=== PATIENT | female | born 2000 | race Caucasian/White ===

== ENCOUNTER 2023-12-19 16:15 | Observation (INO) | payer OTHER, SELFPAY ==
[2023-12-19] VITALS (14 sets, daily range): BP systolic 95–124; BP diastolic 50–81; PULSE 68–95; RESP 14–18; TEMP 36.2–37.1; O2SAT 94–99; BMI 23.1; BMI 23.3
--- NOTE | 2023-12-19 16:35 | CT_ITS ---
We are attempting to reach an attending provider to discuss findings. An addendum with communication details will be sent when the communication is complete. STUDY: CT ABDOMEN AND PELVIS WITH CONTRAST REASON FOR EXAM: Female, 23 years old. abdominal pain RADIATION DOSAGE (If Supplied By Facility): CTDIvol = ( 9.4 ) mGy, DLP = ( 427.57 ) mGycm TECHNIQUE: Transaxial images were obtained from the dome of the diaphragm to the symphysis pubis without oral contrast. IV 100mL Isovue-370 was administered. Sagittal and coronal images were reconstructed. Individualized dose optimization techniques were used for this CT. COMPARISON: None. FINDINGS: The visualized lung bases are unremarkable. The visualized portions of the heart are within normal limits. Normal liver. Normal gallbladder and extrahepatic biliary system. Normal spleen. Normal pancreas. Normal bilateral adrenal glands. Normal right kidney. Normal left kidney. Normal visualized stomach. Normal small intestine. Normal colon. There is thickening of the guillaume of the appendix extending towards the midline with mild stranding in the adjacent fat suspicious for acute appendicitis. There is no periappendiceal abscess Normal abdominal aorta. Normal inferior vena cava. Normal retroperitoneum. Incompletely distended thick walled bladder with stranding in the supra vesicle fat possibly due to cystitis or inflammation related to adjacent appendicitis. Small right ovarian cyst with fluid in the cul-de-sac possibly due to recent ovulation. Normal abdominal wall. Normal osseous structures. CT/Abdomen/Pelvis W IV Cont ONLY IMPRESSION: Findings consistent with acute appendicitis without periappendiceal abscess however there does appear to be associated inflammatory changes involving the adjacent bladder. Electronically Signed: Justin Simpson MD at 17:56 EDT Reading Location ID and State: [facility] / [place] Tel , Service support ,
--- NOTE | 2023-12-19 16:39 | EX.ED.DYSGE1 ---
HPI <AVINASH Avelar - Last Filed: 12/19/23 18:13> History of Present Illness Chief Complaint: Abd Pain Narrative Narrative: Patient is a 23-year-old female with no significant medical history presents to the emergency department with complaints of abdominal pain. Patient was painting a wall, when she had a sudden onset of pain to the mid abdomen. Patient states the pain is now his umbilical area. The pain is much worse and radiates to her back. Patient states she did have some nausea however no vomiting. Denies any diarrhea. Patient denies any fever or chills. PFSH <AVINASH Avelar - Last Filed: 12/19/23 18:13> PFS Medical History no medical history Home Medications ?Medication ?Instructions ?Recorded ?Last Taken ?Type NK 12/19/23 Unknown History Allergy/AdvReac Type Severity Reaction Status Date / Time No Known Allergies Allergy Verified 12/19/23 16:18 Social History Smoking Status: Never smoker ROS <AVINASH Avelar - Last Filed: 12/19/23 18:13> ROS ED ROS Narrative Constitutional: Negative for fever, chills, weight loss, weakness Eyes: Negative for vision loss, vision change, double vision ENT: Negative for any sore throat, ear pain, congestion Cardiovascular: Negative for any chest pain, tightness, palpitations Respiratory: Negative for any cough, sputum production, hemoptysis, dyspnea, dyspnea on exertion, orthopnea Gastrointestinal: Negative for any vomiting, diarrhea, constipation, blood in stool, blood in vomit. Positive for abdominal pain, nausea : Negative for any urinary frequency, dysuria, retention, blood in urine Muscle skeletal: Negative for any neck pain, back pain Neurological: Negative for any headache, syncope, dizziness Skin: Negative for any rashes, itching, abrasions, lacerations Psychiatric: Negative for any depression, anxiety, stress, suicidal ideation, homicidal ideation Hematologic: Negative for any excessive bruising, easy bleeding EXAM <AVINASH Avelar Last Filed: 12/19/23 18:13> Physical Exam Narrative Exam Narrative: Vital signs reviewed. HEET: Head normocephalic atraumatic, TMs clear bilaterally. Posterior pharynx is clear, moist mucous membranes. Nares clear bilaterally. Neck: Supple with no lymphadenopathy or tenderness. No signs of meningismus. Cardiac: Regular rate and rhythm no murmurs gallops or rubs, equal peripheral pulses bilaterally. Respiratory: Lungs clear to auscultation bilaterally. No chest tenderness. Abdomen: Soft, nondistended. No abdominal bruit or pulsatile masses. No hepatosplenomegaly. Tenderness to the periumbilical area patient was markedly tender however it was soft. No peritoneal signs. Extremities: No peripheral edema, no signs of gross trauma or deformity. Active full range of motion of all extremities. Neuro: Cranial nerves II through XII intact, no focal neurological deficits. Skin: Clean dry and intact with no rash, purpura, petechiae, vesicles or pustules. Backs/flank: No CVA tenderness, no midline spinal tenderness, no deformity. Psych: Normal mood and affect. No SI, HI or acute psychosis. Const Vital Signs: 12/19/23 16:16 12/19/23 16:18 12/19/23 17:18 Temperature 97.2 F L 97.2 F L 97.5 F L Temperature Source Temporal Temporal Temporal Pulse Rate 95 92 87 Respiratory Rate 16 16 16 Blood Pressure 124/81 H 124/81 H 112/79 Blood Pressure Mean 95 95 90 Pulse Ox 99 98 98 Oxygen Delivery Method Room Air Room Air Room Air 12/19/23 18:00 Temperature 98.3 F Temperature Source Temporal Pulse Rate 75 Respiratory Rate 16 Blood Pressure 110/74 Blood Pressure Mean 86 Pulse Ox 95 Oxygen Delivery Method Room Air Positive well nourished and well developed General Appearance ED: well developed <Dr. Logan Gonzalez DO - Last Filed: 12/19/23 18:57> Physical Exam Const Vital Signs: 12/19/23 16:16 12/19/23 16:18 12/19/23 17:18 Temperature 97.2 F L 97.2 F L 97.5 F L Temperature Source Temporal Temporal Temporal Pulse Rate 95 92 87 Respiratory Rate 16 16 16 Blood Pressure 124/81 H 124/81 H 112/79 Blood Pressure Mean 95 95 90 Pulse Ox 99 98 98 Oxygen Delivery Method Room Air Room Air Room Air 12/19/23 18:00 Temperature 98.3 F Temperature Source Temporal Pulse Rate 75 Respiratory Rate 16 Blood Pressure 110/74 Blood Pressure Mean 86 Pulse Ox 95 Oxygen Delivery Method Room Air MDM <AVINASH Avelar - Last Filed: 12/19/23 18:13> MDM Lab Data Labs: Laboratory Results - last 24 hr 12/19/23 12/19/23 16:45 16:50 WBC 17.1 H RBC 4.88 Hgb 14.5 Hct 42.4 MCV 86.9 MCH 29.7 MCHC 34.2 RDW Std Deviation 39.1 RDW Coeff of Chemo 12.2 Plt Count 236 MPV 9.8 Immature Gran % (Auto) 0.400 Neut % (Auto) 89.4 H Lymph % (Auto) 5.7 L Sharkey % (Auto) 4.3 Eos % (Auto) 0.0 Baso % (Auto) 0.2 Absolute Neuts (auto) 15.3 H Absolute Lymphs (auto) 0.97 Nucleated RBC % 0 Sodium 138 Potassium 3.7 Chloride 107 Carbon Dioxide 21.0 Anion Gap 10 BUN 15 Creatinine 0.67 Estim Creat Clear Calc 110.84 Est GFR (MDRD) Af Amer 137 Est GFR (MDRD) Non-Af 113 BUN/Creatinine Ratio 22.3 H Glucose 107 H Calcium 9.5 Total Bilirubin 1.10 H AST 14 L ALT 21 Alkaline Phosphatase 60 Total Protein 7.6 Albumin 4.2 Globulin 3.4 Albumin/Globulin Ratio 1.2 Lipase 29 Urine Color Yellow Urine Clarity Sl. Cloudy Urine pH 5.0 Ur Specific [place] 1.020 Urine Protein 15 H Urine Glucose (UA) Normal Urine Ketones 150 A* Urine Occult Blood Negative Urine Nitrite Negative Urine Bilirubin Negative Urine Urobilinogen Normal Ur Leukocyte Esterase Negative Urine RBC 0 SEEN Urine WBC 0 SEEN Ur Squamous Epith Cells 0-5 SEEN Urine Bacteria 2+ Urine Mucus 1+ Urine Test Negative Radiography Diagnostic Testing: Clinical Impression(s) from Imaging Studies Abdomen/Pelvis CT 12/19/23 16:35 IMPRESSION: Findings consistent with acute appendicitis without periappendiceal abscess however there does appear to be associated inflammatory changes involving the adjacent bladder. Electronically Signed: Justin Simpson MD at 17:56 EDT , ADDENDUM: 12/19/23 3224 IMPRESSION: Findings consistent with acute appendicitis without periappendiceal abscess however there does appear to be associated inflammatory changes involving the adjacent bladder. N.B. : The above Results were Read Back by Justin Simpson MD to Bryan Ash and understanding confirmed on 12/19/2023 17:59:58 (ET). Electronically Signed: Justin Simpson MD at 17:56 EDT , ADDENDUM: 12/19/23 1816 IMPRESSION: Findings consistent with acute appendicitis without periappendiceal abscess however there does appear to be associated inflammatory changes involving the adjacent bladder. N.B. : The above Results were Read Back by Justin Simpson MD to Bryan Ash NP, and understanding confirmed on 12/19/2023 18:09:18 (ET). Electronically Signed: Justin Simpson MD at 17:56 EDT , Treatment and Re-Evaluation :: Differential diagnosis includes however is not limited to: Acute appendicitis, bowel obstruction, diverticulitis, muscle strain, pelvic pain such as ruptured ovarian cyst, uterine fibroid Patient appears to be in mild distress after palpating her abdomen. Presenting to the emergency department with lower abdominal pain that started today. This came on all of a sudden. Vital signs are stable. Patient does appear nontoxic. Patient will receive a full abdominal workup including CBC CMP lipase, urinalysis, urine . CT scan of the abdomen pelvis with IV contrast will be completed. Patient given IV fluids Zofran and morphine. Patient be reevaluated. Patient's CBC shows a leukocytosis with a white blood count of 17,000, chemistries were unremarkable. Lipase was negative. Patient's CAT scan was positive for findings consistent with acute appendicitis without periappendiceal abscess however there does appear to be associated laboratory changes involving the adjacent bladder. Secondary to this finding, patient was started IV Zosyn. Did reach out to surgery on-call, they will be here within the hour. Patient was made aware, she was redosed with IV pain medicine. <Dr. Logan Gonzalez, DO - Last Filed: 12/19/23 18:57> [facility] Narrative Medical decision making narrative: I have personally performed a face to face assessment of the patient and have reviewed the HEATH Note. I performed a substantive portion of the visit including all aspects of the following. My foster findings include: History: Patient presents with abdominal pain that began today. Patient states it began rather suddenly. Patient states it started in the epigastric and periumbilical areas. Patient states it is now diffuse across her abdomen. Patient describes it as sharp, cramping, and aching. Patient states it is worse with any movement or deep breathing. Patient states it is better with remaining still. Patient admits to some nausea and vomiting. Patient denies any hematemesis or coffee-ground emesis. Patient denies any diarrhea, melena, or hematochezia. Patient states her pain does radiate into her low back. Patient denies any fevers or chills. Patient denies any urinary complaints. Exam: Vital signs are stable. Patient is afebrile. Patient is in no acute distress. Oral mucosa is pink and moist. Neck is supple. Trachea is midline. There is no JVD. Heart was regular rate and rhythm. Lungs are clear and equal bilaterally. Abdomen is soft. Bowel sounds are normal. There is diffuse tenderness. There is no guarding. There is no rebound noted. Cranial nerves II through XII are intact. There are no focal motor or sensory deficits noted. Medical Decision Making: Differential diagnosis includes gastritis, peptic ulcer disease, duodenal ulcer, pancreatitis, bowel obstruction, perforation, cholecystitis, cholelithiasis, urinary tract infection, and . CT scan of the abdomen pelvis will be obtained to assess for pancreatitis, bowel obstruction, and perforation. CBC will be obtained to assess for leukocytosis and anemia. Comprehensive metabolic profile will be obtained to assess for hepatic function, renal function, and electrolyte abnormality. Lipase will be obtained to assess for pancreatitis. Urine hCG will be obtained to assess for . Urinalysis will be obtained to assess for urinary tract infection. Patient was given IV fluids, morphine, and Zofran. CBC was reviewed. There is a leukocytosis of 17.1. The remainder was within normal limits. Comprehensive metabolic profile was reviewed and was essentially within normal limits. Lipase was reviewed and was normal at 29. Urinalysis was reviewed. There is no evidence of urinary tract infection or hematuria. CT scan of the abdomen and pelvis was obtained. There is evidence of acute appendicitis but no abscess. This was interpreted by the radiologist and was also independently reviewed by myself. Patient was given morphine and Zofran. Patient was given a dose of Zosyn. Case was discussed with Dr. Soliman. He will be in to evaluate the patient and take patient to the operating room for appendectomy. Patient understood and was agreeable with the plan. All questions were answered. Lab Data Labs: Laboratory Results - last 24 hr 12/19/23 12/19/23 16:45 16:50 WBC 17.1 H RBC 4.88 Hgb 14.5 Hct 42.4 MCV 86.9 MCH 29.7 MCHC 34.2 RDW Std Deviation 39.1 RDW Coeff of Chemo 12.2 Plt Count 236 MPV 9.8 Immature Gran % (Auto) 0.400 Neut % (Auto) 89.4 H Lymph % (Auto) 5.7 L Sharkey % (Auto) 4.3 Eos % (Auto) 0.0 Baso % (Auto) 0.2 Absolute Neuts (auto) 15.3 H Absolute Lymphs (auto) 0.97 Nucleated RBC % 0 Sodium 138 Potassium 3.7 Chloride 107 Carbon Dioxide 21.0 Anion Gap 10 BUN 15 Creatinine 0.67 Estim Creat Clear Calc 110.84 Est GFR (MDRD) Af Amer 137 Est GFR (MDRD) Non-Af 113 BUN/Creatinine Ratio 22.3 H Glucose 107 H Calcium 9.5 Total Bilirubin 1.10 H AST 14 L ALT 21 Alkaline Phosphatase 60 Total Protein 7.6 Albumin 4.2 Globulin 3.4 Albumin/Globulin Ratio 1.2 Lipase 29 Urine Color Yellow Urine Clarity Sl. Cloudy Urine pH 5.0 Ur Specific [place] 1.020 Urine Protein 15 H Urine Glucose (UA) Normal Urine Ketones 150 A* Urine Occult Blood Negative Urine Nitrite Negative Urine Bilirubin Negative Urine Urobilinogen Normal Ur Leukocyte Esterase Negative Urine RBC 0 SEEN Urine WBC 0 SEEN Ur Squamous Epith Cells 0-5 SEEN Urine Bacteria 2+ Urine Mucus 1+ Urine Test Negative Radiography Diagnostic Testing: Clinical Impression(s) from Imaging Studies Abdomen/Pelvis CT 12/19/23 16:35 IMPRESSION: Findings consistent with acute appendicitis without periappendiceal abscess however there does appear to be associated inflammatory changes involving the adjacent bladder. Electronically Signed: Justin Simpson MD at 17:56 EDT , ADDENDUM: 12/19/23 1806 IMPRESSION: Findings consistent with acute appendicitis without periappendiceal abscess however there does appear to be associated inflammatory changes involving the adjacent bladder. N.B. : The above Results were Read Back by Justin Simpson MD to Bryan Ash and understanding confirmed on 12/19/2023 17:59:58 (ET). Electronically Signed: Justin Simpson MD at 17:56 EDT , ADDENDUM: 12/19/23 1816 IMPRESSION: Findings consistent with acute appendicitis without periappendiceal abscess however there does appear to be associated inflammatory changes involving the adjacent bladder. N.B. : The above Results were Read Back by Justin Simpson MD to Bryan Ash , RAFI, and understanding confirmed on 12/19/2023 18:09:18 (ET). Electronically Signed: Justin Simpson MD at 17:56 EDT , Discharge Plan Triage Chief Complaint: Abd Pain ED Midlevel Provider: Bryan Ash ED Provider: Logan Gonzalez Dx/Rx/DC Orders Primary Care Provider: CYNTHIA TUCKER
[2023-12-19] MEDS: 0.9% Normal Saline (1000mL) 1,000 ML 999 ML IV (16:54)
[2023-12-19] MEDS: Ondansetron 4 MG/2 ML Vial IV (16:54)
[2023-12-19 16:55] LABS: Absolute Lymphocyte Count 0.97 X10^3/uL (0.83-4.51); Absolute Neutrophil Count 15.3 X10^3/uL (2.0-7.7); Basophil# 0.03 X10^3/uL; Basophil% 0.2 % (0-1); Hematocrit 42.4 % (37-47); Hemoglobin 14.5 g/dL (12.0-15.0); Lymphocyte # 0.97 X10^3/ul (0.83-4.51); Lymphocyte % 5.7 % (19-41); Mean Corp Hgb Conc 34.2 g/dL (32-36); Mean Corpuscular Hgb 29.7 pg (27.0-32.0); Mean Corpuscular Volume 86.9 fL (81-99); Mean Platelet Vol. 9.8 fl (6.2-12.0); Monocyte# 0.73 X10^3/uL; Monocyte% 4.3 % (0-10); NRBC Flagged by Analyzer 0 % (0-5); Neutrophil # 15.29 X10^3/uL (2.7-7.7); Neutrophil % 89.4 % (47-70); Platelet Count 236 K/mm3 (150-450); RBC Distribution Width CV 12.2 % (11.6-14.6); RBC Distribution Width SD 39.1 fl (35.1-43.9); Red Blood Count 4.88 M/mm3 (4.2-5.4); White Blood Count 17.1 K/mm3 (4.4-11.0)
[2023-12-19] MEDS: Morphine 4 MG/ML Syringe IV ×2 (16:55→18:26)
[2023-12-19 17:05] LABS: Red Blood Cells-Urine 0 SEEN /hpf (0-5); White Blood Cells 0 SEEN /hpf (0-5)
[2023-12-19 17:12] LABS: ALB/GLOB Ratio 1.2 RATIO (0.9-2.4); AST(SGOT) 14 U/L (15-37); Alanine Aminotransfer ALT/SGPT 21 U/L (13-56); Albumin, Serum 4.2 g/dL (3.2-5.0); Alkaline Phosphatase 60 U/L (45-117); Anion Gap 10 (5-15); BUN 15 mg/dL (7-18); BUN/Creat Ratio 22.3 RATIO (10-20); Calcium,Total 9.5 mg/dL (8.5-10.1); Chloride 107 mmol/L (98-107); Creatinine, Serum 0.67 mg/dL (0.55-1.02); EST Glomerular Filtration Rate 113 mL/min (>60); Est Glom Filt Rate - Afr Amer 137 mL/min (>60); Estimated Creatinine Clearance 110.84 ml/min; Globulin 3.4 g/dL (2.2-4.2); Glucose 107 mg/dL (74-106); Lipase 29 U/L (13-75); Potassium 3.7 mmol/L (3.5-5.1); Protein, Total 7.6 g/dL (6.4-8.2); Sodium Level 138 mmol/L (136-145)
[2023-12-19 17:13] LABS: Color, Urine Yellow (Yellow); Glucose, Dipstick Normal (Normal); Leukocyte Esterase-Dipstick Negative /ul (Negative); Nitrite-Dipstick Negative (Negative); Occult Blood-Urine Negative /ul (Negative); Protein-Dipstick 15 mg/dl (Negative); Urine Bilirubin Dipstick Negative (Negative); Urine Clarity Sl. Cloudy (Clear); Urine Urobilinogen Normal (Normal)
[2023-12-19 17:22] LABS: Ketone-Dipstick 150 mg/dl (Negative)
[2023-12-19 17:23] LABS: Bacteria 2+ /hpf (None Seen); Internal QC Validated? YES +Cl - CLEAR BKGD; Mucous, Urine 1+ /hpf (<or=2+); Pregnancy, Urine Negative Negative; Squamous Epithelial Cells - UA 0-5 SEEN /hpf (5-10)
[2023-12-19] MEDS: Piperacil/Tazobactam 3.375 GM in 0.9% Normal Saline (50mL MB+) 50 ML IV (18:30)
--- NOTE | 2023-12-19 18:55 | HP.PCM.SX_ITS ---
HPI - General HPI Narrative YORDY KAY, is a 23 F who presents with abdominal pain and nausea, vomiting. Patient says it started this afternoon. She says the pain migrated down to the right lower quadrant. She denies fevers or chills. PFSH Medical History no medical history Home Medications ?Medication ?Instructions ?Recorded ?Last Taken ?Type NK 12/19/23 Unknown History Allergy/AdvReac Type Severity Reaction Status Date / Time No Known Allergies Allergy Verified 12/19/23 16:18 Social History Smoking Status: Never smoker ROS Constitutional Constitutional: Denies anorexia, chills or fatigue Eyes Eyes: Denies blurry vision ENT HEENT: Denies abnormal hearing Cardiovascular Cardiovascular: Denies chest pain Respiratory/Chest Respiratory/Chest: Denies cough or dyspnea Gastrointestinal Gastrointestinal: Reports abdominal pain, nausea and vomiting; Denies constipation Genitourinary Genitourinary: Denies change in urinary stream Musculoskeletal Musculoskeletal: Denies abnormal gait Integumentary Integumentary: Denies jaundice Neurologic Neurologic: Denies dizziness Psychiatric Psychiatric: Denies anxiety Endocrine Endocrinology: Denies heat intolerance Hematologic/Lymphatic Hematologic/Lymphatic: Denies easy bleeding Vital Signs Vital Signs Vital Signs: 12/19/23 16:16 12/19/23 16:18 12/19/23 17:18 Temperature 97.2 F L 97.2 F L 97.5 F L Temperature Source Temporal Temporal Temporal Pulse Rate 95 92 87 Respiratory Rate 16 16 16 Blood Pressure 124/81 H 124/81 H 112/79 Blood Pressure Mean 95 95 90 Pulse Ox 99 98 98 Oxygen Delivery Method Room Air Room Air Room Air 12/19/23 18:00 Temperature 98.3 F Temperature Source Temporal Pulse Rate 75 Respiratory Rate 16 Blood Pressure 110/74 Blood Pressure Mean 86 Pulse Ox 95 Oxygen Delivery Method Room Air Weight Weight: 135 lb Body Mass Index (BMI) 23.1 Physical Exam Const oriented x3 and no apparent distress Resp normal respiratory effort GI soft to palpation Palpation: tender RLQ Extremity normal to inspection Results Lab / Micro Data 12/19/23 16:45 12/19/23 16:45 Labs: Laboratory Results - last 24 hr 12/19/23 16:45: WBC 17.1 H, RBC 4.88, Hgb 14.5, Hct 42.4, MCV 86.9, MCH 29.7, MCHC 34.2, RDW Std Deviation 39.1, RDW Coeff of Chemo 12.2, Plt Count 236, MPV 9.8, Immature Gran % (Auto) 0.400, Neut % (Auto) 89.4 H, Lymph % (Auto) 5.7 L, [place] % (Auto) 4.3, Eos % (Auto) 0.0, Baso % (Auto) 0.2, Absolute Neuts (auto) 15.3 H, Absolute Lymphs (auto) 0.97, Nucleated RBC % 0, Sodium 138, Potassium 3.7, Chloride 107, Carbon Dioxide 21.0, Anion Gap 10, BUN 15, Creatinine 0.67, Estim Creat Clear Calc 110.84, Est GFR (MDRD) Af Amer 137, Est GFR (MDRD) Non-Af 113, BUN/Creatinine Ratio 22.3 H, Glucose 107 H, Calcium 9.5, Total Bilirubin 1.10 H, AST 14 L, ALT 21, Alkaline Phosphatase 60, Total Protein 7.6, Albumin 4.2, Globulin 3.4, Albumin/Globulin Ratio 1.2, Lipase 29 12/19/23 16:50: Urine Color Yellow, Urine Clarity Sl. Cloudy, Urine pH 5.0, Ur Specific [place] 1.020, Urine Protein 15 H, Urine Glucose (UA) Normal, Urine Ketones 150 A*, Urine Occult Blood Negative, Urine Nitrite Negative, Urine Bilirubin Negative, Urine Urobilinogen Normal, Ur Leukocyte Esterase Negative, Urine RBC 0 SEEN, Urine WBC 0 SEEN, Ur Squamous Epith Cells 0-5 SEEN, Urine Bacteria 2+, Urine Mucus 1+, Urine Test Negative Imaging Radiology Impression Abdomen/Pelvis CT 12/19/23 16:35 IMPRESSION: Findings consistent with acute appendicitis without periappendiceal abscess however there does appear to be associated inflammatory changes involving the adjacent bladder. Electronically Signed: Justin Simpson MD at 17:56 EDT , ADDENDUM: 12/19/23 2157 IMPRESSION: Findings consistent with acute appendicitis without periappendiceal abscess however there does appear to be associated inflammatory changes involving the adjacent bladder. N.B. : The above Results were Read Back by Justin Simpson MD to Bryan Ash and understanding confirmed on 12/19/2023 17:59:58 (ET). Electronically Signed: Justin Simpson MD at 17:56 EDT , ADDENDUM: 12/19/23 1816 IMPRESSION: Findings consistent with acute appendicitis without periappendiceal abscess however there does appear to be associated inflammatory changes involving the adjacent bladder. N.B. : The above Results were Read Back by Justin Simpson MD to Bryan Ash NP, and understanding confirmed on 12/19/2023 18:09:18 (ET). Electronically Signed: Justin Simpson MD at 17:56 EDT , Assessment & Plan Assessment/Plan (1) Appendicitis: QUALIFIERS: Appendicitis type: unspecified Qualified Code(s): K37 - Unspecified appendicitis PLAN: Patient presented with pain and elevated white count. CT scan revealed acute appendicitis there was also some thickening of the bladder wall but the patient does not have any urinary symptoms. I discussed laparoscopic appendectomy with the patient in detail. I discussed the risks including but not limited to bleeding, infection, injury other organ such as the bladder, bowel, ureter. Patient understands all the risks and is willing to proceed. She was given antibiotics in the emergency room. Jourdan Soliman MD Pager: [facility] [address] [place] [address], [address] [place] [address] Office:
--- NOTE | 2023-12-19 19:20 | APP_PTH ---
PATIENT: YORDY KAY LOC: [facility]3 U#:[id number] AGE/SX: 23/F ROOM: MT314 RE12/19/[address]: Dr. Jourdan Soliman MD : 2000 BED: 1 DIS: 12/20/2023 SPEC #: [id number] RECD: 12/23/23 09:52 STATUS: EVELINA DELAROSA #: [id number] CORTNEY: 12/19/23 19:[address]: Jourdan Soliman DEPT: SURGICAL PATHOLOGY RECD BY: Tae Schilling Tissues: Appendix, NOS Procedures: Surgery Specimen Level III HEADER OPERATION: Laparoscopic, appendectomy PRE-OP DIAGNOSIS: Appendicitis TISSUE SUBMITTED: Appendix MICROSCOPIC DIAGNOSIS Appendix, appendectomy: Acute necrotizing appendicitis. Acute serositis. AM/mr 12/24/2023 MICROSCOPIC DESCRIPTION Slides are reviewed. GROSS DESCRIPTION Received in fixative is one container labeled with the patient's name and designated appendix. The specimen consists of a vermiform appendix measuring 6.0 cm in length and 0.9 cm in average diameter. No gross perforations are evident. Serial sections reveal a patent lumen. No mass lesion is identified. [employer] sections are submitted in one cassette. / AM: 12/23/2023 TC:2 CPT: [id number]
[2023-12-19] MEDS: Bupiv/Epi 0.25% 30 ML Vial (20:17)
--- NOTE | 2023-12-19 20:23 | OP.PCM_ITS ---
Report of Operation Date of Procedure: 12/19/23 Pre-Operative Diagnosis: Acute appendicitis Post-Operative Diagnosis: Same Surgery/Procedure Performed:: Laparoscopic appendectomy Type of Anesthesia: General/Regional Specimen's removed: Appendix Estimated Blood Loss (mL): 10 Description of Procedure: The patient was brought into the operating room and general anesthesia was induced. The left arm was tucked and the abdomen was prepped and draped in usual sterile fashion. A small midline incision was made superior to the umbilicus and deepened to the level of the fascia. The fascia was elevated and incised. The peritoneum was also elevated and incised. A finger sweep was performed and a balloon trocar was placed into the abdomen and inflated. The abdomen was insufflated to 15 mmHg and the camera was inserted and the abdomen was inspected for any injuries upon entering the abdomen. There were none. The patient was placed in Trendelenburg position and a 5 mm ports placed in the left lower quadrant and suprapubic areas under direct visualization. Next using atraumatic bowel graspers the appendix was identified. The appendix was grasped and elevated and Enseal was used to take down the mesoappendix. A stapler was used to come across the base of the appendix. The appendix was then placed in Endo Catch bag and removed through the umbilical incision. The staple line was inspected and found to be hemostatic and intact. The 2 5 mm ports are removed under direct visualization. The balloon trocar was deflated and removed and all the air was removed from the abdomen. The umbilical incision fascia was closed with an 0 Vicryl [id number] suture. The incisions were then irrigated with saline and dried. Local anesthetic was injected into the incision sites. The skin incisions were then closed with interrupted 4-0 Monocryl suture and Steri- Strips. Bandages were applied and the patient was awoken and taken to PACU in stable condition. Patient tolerated the procedure well. Admit VTE Documentation VTE Mechan Device Prophylaxis: SCD's
[2023-12-19] MEDS: Ketorolac 15 MG/ML Vial IV (21:00)
[2023-12-19] MEDS: Acetaminophen 325 MG Tablet 650 MG PO (22:40)
[2023-12-19] MEDS: 0.9% Normal Saline (1000mL) 1,000 ML 60 ML IV (22:41)
[2023-12-20 02:20] VITALS: BP 92/52; PULSE 62; RESP 16; TEMP 36.8; O2SAT 99
[2023-12-20] MEDS: oxyCODONE 5 MG Tablet PO ×2 (02:22→06:46)
[2023-12-20] MEDS: Ketorolac 15 MG/ML Vial IV (05:08)
[2023-12-20] MEDS: Acetaminophen 325 MG Tablet 650 MG PO ×2 (05:12→15:12)
[2023-12-20 05:17] VITALS: BP 89/56; PULSE 66; RESP 16; TEMP 36.3; O2SAT 99
[2023-12-20 06:42] VITALS: BP 87/55; PULSE 70; RESP 16; TEMP 36.4; O2SAT 99
--- NOTE | 2023-12-20 08:50 | PCM.PN.SRG ---
Subjective Subjective Patient reports her abdomen feels a little bit distended. Denies nausea or vomiting. Objective Data Objective Data Vital Signs: Vital Signs Temp Pulse Resp BP Pulse Ox O2 Del Method 97.5 F L 70 16 87/55 L 99 Room Air 12/20/23 06:42 12/20/23 06:42 12/20/23 06:42 12/20/23 06:42 12/20/23 06:42 12/20/23 06:42 Oxygen Delivery Method Room Air Weight: 136 lb 0.403 oz Body Mass Index (BMI) 23.3 Intake & Output: Intake and Output for Last 24 Hours 12/18/23 12/19/23 12/20/23 23:59 23:59 23:59 Intake Total 1050 / 1550 1000 / 1000 Output Total 600 / 600 Balance 1050 / 1550 400 / 400 Lab / Micro Data 12/19/23 16:45 12/19/23 16:45 Labs: Laboratory Results - last 24 hr 12/19/23 16:45: WBC 17.1 H, RBC 4.88, Hgb 14.5, Hct 42.4, MCV 86.9, MCH 29.7, MCHC 34.2, RDW Std Deviation 39.1, RDW Coeff of Chemo 12.2, Plt Count 236, MPV 9.8, Immature Gran % (Auto) 0.400, Neut % (Auto) 89.4 H, Lymph % (Auto) 5.7 L, [place] % (Auto) 4.3, Eos % (Auto) 0.0, Baso % (Auto) 0.2, Absolute Neuts (auto) 15.3 H, Absolute Lymphs (auto) 0.97, Nucleated RBC % 0, Sodium 138, Potassium 3.7, Chloride 107, Carbon Dioxide 21.0, Anion Gap 10, BUN 15, Creatinine 0.67, Estim Creat Clear Calc 110.84, Est GFR (MDRD) Af Amer 137, Est GFR (MDRD) Non-Af 113, BUN/Creatinine Ratio 22.3 H, Glucose 107 H, Calcium 9.5, Total Bilirubin 1.10 H, AST 14 L, ALT 21, Alkaline Phosphatase 60, Total Protein 7.6, Albumin 4.2, Globulin 3.4, Albumin/Globulin Ratio 1.2, Lipase 29 12/19/23 16:50: Urine Color Yellow, Urine Clarity Sl. Cloudy, Urine pH 5.0, Ur Specific [place] 1.020, Urine Protein 15 H, Urine Glucose (UA) Normal, Urine Ketones 150 A*, Urine Occult Blood Negative, Urine Nitrite Negative, Urine Bilirubin Negative, Urine Urobilinogen Normal, Ur Leukocyte Esterase Negative, Urine RBC 0 SEEN, Urine WBC 0 SEEN, Ur Squamous Epith Cells 0-5 SEEN, Urine Bacteria 2+, Urine Mucus 1+, Urine Test Negative Radiography Diagnostic Testing: Radiology Impression Abdomen/Pelvis CT 12/19/23 16:35 IMPRESSION: Findings consistent with acute appendicitis without periappendiceal abscess however there does appear to be associated inflammatory changes involving the adjacent bladder. Electronically Signed: Justin Simpson MD at 17:56 EDT Reading Location ID and State: [facility] / [place] Tel [phone], Service support , ADDENDUM: 12/19/23 1806 IMPRESSION: Findings consistent with acute appendicitis without periappendiceal abscess however there does appear to be associated inflammatory changes involving the adjacent bladder. N.B. : The above Results were Read Back by Justin Simpson MD to Bryan Ash and understanding confirmed on 12/19/2023 17:59:58 (ET). Electronically Signed: Justin Simpson MD at 17:56 EDT Reading Location ID and State: [facility] / [place] Tel [phone], Service support , ADDENDUM: 12/19/23 1816 IMPRESSION: Findings consistent with acute appendicitis without periappendiceal abscess however there does appear to be associated inflammatory changes involving the adjacent bladder. N.B. : The above Results were Read Back by Justin Simpson MD to Bryan Ash NP, and understanding confirmed on 12/19/2023 18:09:18 (ET). Electronically Signed: Justin Simpson MD at 17:56 EDT , Physical Exam Const oriented x3 and no apparent distress Resp normal respiratory effort GI soft to palpation Inspection: abdominal distention Palpation: tender Assessment & Plan Assessment/Plan (1) Appendicitis: QUALIFIERS: Appendicitis type: unspecified Qualified Code(s): K37 - Unspecified appendicitis PLAN: Patient reports she is feeling better than yesterday. She denies nausea or vomiting. She is still having some pain and some distention. She tolerated regular diet for dinner and for breakfast this morning. As long as she does not get nauseous and she starts having bowel function later today I will discharge her later. If she starts having nausea or increased pain I will keep her until tomorrow. Jourdan Soliman MD Pager: [facility] [address] [place] [address], [address] [place] [address] Office:
--- NOTE | 2023-12-20 08:52 | PCM.DC.SUM ---
Providers Date of Admission: 12/19/23 Primary Care Physician: CYNTHIA TUCKER Reason For Visit: ACUTE APPENDICITIS Diagnosis Discharge Diagnosis (1) Appendicitis: Status: Acute Code(s): K37 - Unspecified appendicitis Qualifiers: Appendicitis type: unspecified Qualified Code(s): K37 - Unspecified appendicitis Plan: Patient reports she is feeling better than yesterday. She denies nausea or vomiting. She is still having some pain and some distention. She tolerated regular diet for dinner and for breakfast this morning. As long as she does not get nauseous and she starts having bowel function later today I will discharge her later. If she starts having nausea or increased pain I will keep her until tomorrow. Jourdan Soliman MD Pager: [facility] [address] [place] [address], [address] [place] [phone] Office: Medications at Discharge Home Medications oxycodone 5 mg tablet 5 - 10 mg (1 - 2 x 5 mg) PO Q4H PRN PRN Pain Score 4-10 5 days #20 tabs 12/20/23 Hospital Course Operations appendectomy Procedures None Summary of Care Provided Hospital Course: Patient presented to the hospital with abdominal pain was found to have acute appendicitis. She was taken for laparoscopic appendectomy. Following day she was started on diet and discharged home once tolerating diet Weight / BMI Weight Weight: 136 lb 0.403 oz Body Mass Index (BMI) 23.3 ABG / Lab / Microbiology Data 12/19/23 16:45 12/19/23 16:45 Laboratory: Laboratory Results - last 24 hr 12/19/23 16:45: WBC 17.1 H, RBC 4.88, Hgb 14.5, Hct 42.4, MCV 86.9, MCH 29.7, MCHC 34.2, RDW Std Deviation 39.1, RDW Coeff of Chemo 12.2, Plt Count 236, MPV 9.8, Immature Gran % (Auto) 0.400, Neut % (Auto) 89.4 H, Lymph % (Auto) 5.7 L, [place] % (Auto) 4.3, Eos % (Auto) 0.0, Baso % (Auto) 0.2, Absolute Neuts (auto) 15.3 H, Absolute Lymphs (auto) 0.97, Nucleated RBC % 0, Sodium 138, Potassium 3.7, Chloride 107, Carbon Dioxide 21.0, Anion Gap 10, BUN 15, Creatinine 0.67, Estim Creat Clear Calc 110.84, Est GFR (MDRD) Af Amer 137, Est GFR (MDRD) Non-Af 113, BUN/Creatinine Ratio 22.3 H, Glucose 107 H, Calcium 9.5, Total Bilirubin 1.10 H, AST 14 L, ALT 21, Alkaline Phosphatase 60, Total Protein 7.6, Albumin 4.2, Globulin 3.4, Albumin/Globulin Ratio 1.2, Lipase 29 12/19/23 16:50: Urine Color Yellow, Urine Clarity Sl. Cloudy, Urine pH 5.0, Ur Specific [place] 1.020, Urine Protein 15 H, Urine Glucose (UA) Normal, Urine Ketones 150 A*, Urine Occult Blood Negative, Urine Nitrite Negative, Urine Bilirubin Negative, Urine Urobilinogen Normal, Ur Leukocyte Esterase Negative, Urine RBC 0 SEEN, Urine WBC 0 SEEN, Ur Squamous Epith Cells 0-5 SEEN, Urine Bacteria 2+, Urine Mucus 1+, Urine Test Negative Radiography Diagnostic Testing: Radiology Impression Abdomen/Pelvis CT 12/19/23 16:35 IMPRESSION: Findings consistent with acute appendicitis without periappendiceal abscess however there does appear to be associated inflammatory changes involving the adjacent bladder. Electronically Signed: Justin Simpson MD at 17:56 EDT Reading Location ID and State: [address] [place] [address] Tel [phone], Service support , ADDENDUM: 12/19/23 1806 IMPRESSION: Findings consistent with acute appendicitis without periappendiceal abscess however there does appear to be associated inflammatory changes involving the adjacent bladder. N.B. : The above Results were Read Back by Justin Simpson MD to Bryan Ash and understanding confirmed on 12/19/2023 17:59:58 (ET). Electronically Signed: Justin Simpson MD at 17:56 EDT , ADDENDUM: 12/19/23 1816 IMPRESSION: Findings consistent with acute appendicitis without periappendiceal abscess however there does appear to be associated inflammatory changes involving the adjacent bladder. N.B. : The above Results were Read Back by Justin Simpson MD to Bryan Ash NP, and understanding confirmed on 12/19/2023 18:09:18 (ET). Electronically Signed: Justin Simpson MD at 17:56 EDT Reading Location ID and State: [address] [place] [address] Tel , Service support , D/C Instructions Discharge Diet: Light diet - advance as tolerated Discharge Activity: May Not Drive (for 2-3 days or while taking narcotic pain medications.) May shower in (days): 1 Lifting Restrictions: 20 lbs for 2 weeks Call your doctor if your incision/area has: Continuous Slow Oozing, Sudden Increased Bleeding, Increased Pain/ Swelling, Increased Redness and Foul Smelling Discharge Call your doctor if you observe: Fever of 101 or Higher Suture Line Care: Avoid Pulling/Pushing and Avoid Pinching/Bending Remove Dressing in: 2 days Cleanse incision/area with: Soap & Water Additional Dressing/Incision Instructions: Keep dressing clean and dry. Change or remove dressing in 2 days. Leave steri strips for 1 week. May protect with a gauze bandaid. Alternate ibuprofen and Tylenol for pain control, oxycodone for breakthrough pain Please Follow Up With: Jourdan Soliman MD When: Please call to schedule 2 week follow up appointment. [phone] Meaningful Use Info Meaningful Use Meaningful Use Diagnoses (Choose all that apply): None applicable Ischemic Stroke Statin Dosing Therapy Reference: STATIN DOSE THERAPY REFERENCE: * Patients > 75 years receive moderate or high dose statin therapy. * Patients 75 years or YOUNGER should receive HIGH intensity statin dose unless contraindicated. You will be required to document reason for non-treatment if statin daily dose does not meet guidelines. HIGH DOSE STATIN THERAPY DAILY Atorvastatin > than or = to 40 mg Rosuvastatin > than or = to 20 mg Amlodipine + Atorvastatin > than or = to 2.5/40 mg Ezetimibe + Simvastatin 10/80 mg Simvastatin 80mg Discharge Plan Admission Admit Date/Time: 12/19/23 20:34 Attending Provider: Jourdan Soliman Primary Care Provider: CYNTHIA TUCKER Discharge Orders/Prescriptions Prescriptions: New oxycodone 5 mg Tablet 5 - 10 mg PO Q4H PRN PRN (Reason: Pain Score 4-10) 5 Days Qty: 20 0RF Referrals / Follow Up: CYNTHIA TUCKER [Other] Disposition Disposition (needs filled in before D/C Order can be placed): Home, Self Care
[2023-12-20 10:00] VITALS: BP 109/68; PULSE 66; RESP 18; TEMP 36.7; O2SAT 100
[2023-12-20 12:39] VITALS: BP 104/70; PULSE 66; RESP 16; TEMP 36.7; O2SAT 100
== END 2023-12-20 16:00 | disposition home or self-care (01) ==
LOC: ED 18:46 → SDC 18:46 → MS3 20:37
PROVIDERS: Nurse Practitioner; Admitting Provider Surgery; Emergency Provider Emergency Medicine; Visit Provider Surgery
PROC: 0DTJ4ZZ Resection of Appendix, Percutaneous Endoscopic Approach (ICD-10-PCS; CPT 44970; principal; 2023-12-19 19:00)
DX: K35.80 Unspecified acute appendicitis (principal)
CPT/HCPCS: 44970; 00840; 74177; 80053; 81001; 81025; 83690; 85025; 88304; 96374; 96375; 96376; 99221; 99283; J7030; Q9967; A4216; C1760; G0378; J2405

== ENCOUNTER 2024-10-02 10:40 | Emergency (ER) | payer OTHER, SELFPAY ==
[2024-10-02 10:41] VITALS: BP 129/93; PULSE 109; RESP 17; TEMP 37.1; O2SAT 99; BMI 22.3
[2024-10-02 10:43] VITALS: BP 128/76; PULSE 89; RESP 16; TEMP 37.2; O2SAT 98
--- NOTE | 2024-10-02 10:54 | CT_ITS ---
PROCEDURE: SINUS/FACIAL BONE WITH CONTRAS REASON FOR EXAM: 24-year-old female, right lower posterior dental pain, recent root canal. TECHNIQUE: CT of the paranasal sinuses with contrast. CONTRAST: Isovue-300 COMPARISON: None. FINDINGS: There is a small right submandibular space, low-density collection with mild rim enhancement measuring approximately 1.4 x 0.8 cm (series 2, image 18). Thin cortical osseous lucency adjacent to the fluid collection with mild sclerosis of the right body of the mandible surrounding tooth #31. Mild surrounding subcutaneous edema and thickening of the adjacent platysma. No deep neck extension or airway compromise. Small cutaneous density adjacent to the right mental tubercle, likely a sebaceous cyst. Prominent right submandibular and submental nodes, likely reactive. The frontal, ethmoid, sphenoid and maxillary sinuses are well-aerated. No mastoid effusion. Nasal Septum: Midline. No large nasal septal spur. Ornamental right nasal piercing. Visualized intracranial structures are unremarkable. CT/Sinus/Facial Bone WITH Contras IMPRESSION: Small abscess within the right submandibular space, with adjacent sclerosis of the mandible surrounding tooth # 31, compatible with reported recent root canal. Additional mild edema and thickening of the p latysma muscle, likely reactive. Dr. Barger discussed these findings with Dr. Interiano via telephone at 12:31 pm on 10/02/24. One or more dose reduction techniques were used (e.g., Automated exposure contr ol, adjustment of the mA and/or kV according to patient size, use of iterative reconstruction technique). Reading Location: [id number]
--- NOTE | 2024-10-02 11:00 | EX.ED.DYSGE1 ---
HPI History of Present Illness Chief Complaint: Dental Narrative Narrative: Patient is a 24-year-old female with no known significant past medical history who presented to the emergency department chief complaint of dental pain. Patient states that on Friday she had a root canal and by Friday she was having a significant mount of pain. She states that she went to the dentist today and they looked at and states that this was too infected that she needed to come to the hospital for IV antibiotics. States that she took 2 doses of amoxicillin as a prescribed this yesterday as well as a steroid. Patient denies any fevers or chills. Patient complains of pain rates his pain a 8 out of 10. Denies any difficulty swallowing PFSH PFSH Home Medications ?Medication ?Instructions ?Recorded ?Last Taken ?Type oxycodone 5 mg tablet 5 - 10 mg (1 - 2 x 5 mg) PO Q4H 12/20/23 Unknown Rx PRN PRN Pain Score 4-10 5 days #20 tabs Allergy/AdvReac Type Severity Reaction Status Date / Time No Known Allergies Allergy Verified 10/02/24 10:43 Surgical History History of laparoscopic appendectomy History of appendectomy Social History Smoking Status: Never smoker ROS ROS ED ROS Narrative Constitutional: Denies fevers, chills, headaches, lightness, dizziness Eyes, ears, nose, throat: Complains of dental pain as noted above denies difficulty swallowing Abdomen: Denies nausea vomit diarrhea : Denies any urinary symptoms Neurological: Denies numbness, weakness, tingling EXAM Physical Exam Narrative Exam Narrative: General: Patient lying in bed rest comfortably did not appear to be uncomfortable secondary to her dental pain Head: Atraumatic, normocephalic Eyes, ears, nose, throat: Patient has evidence of recent procedure on the back right bottom left tooth 32, no confirmed concern for abscess at this point in time, no sublingual swelling noted Neck: Soft, supple, trachea midline, no concern for Larry's angina Cardiovascular: Regular rate and rhythm Neurological: Patient follow commands that she was at [facility] year is 2024 Skin: Warm, dry, intact no rashes or lesions noted Const Vital Signs: 10/02/24 10:41 10/02/24 10:43 10/02/24 11:43 Temperature 98.7 F 98.9 F 98.9 F Temperature Source Temporal Oral Oral Pulse Rate 109 H 89 89 Respiratory Rate 17 16 16 Blood Pressure 129/93 H 128/76 H 124/75 H Blood Pressure Mean 105 93 91 Pulse Ox 99 98 99 Oxygen Delivery Method Room Air Room Air Room Air 10/02/24 14:00 10/02/24 16:00 Temperature Temperature Source Pulse Rate 66 64 Respiratory Rate 14 18 Blood Pressure 124/78 H 129/76 H Blood Pressure Mean 93 93 Pulse Ox 98 98 Oxygen Delivery Method Room Air Room Air MDM MDM MDM Narrative Medical decision making narrative: Patient is a 24-year-old female who presented to the emergency department the chief complaint of dental pain. On the differential diagnose includes but not limited to dental infection, abscess, failed root canal. Patient be given a dose of IV clindamycin, morphine Zofran. Once the workup is obtained and reviewed he will be reevaluated. Patient CBC was reviewed and was largely unremarkable no evidence leukocytosis white blood count normal 11, hemoglobin 14.4, plate count was noted be 251. Patient sodium normal 130, testing normal at 2.8, creatinine was normal at 0.74. Patient AST and ALT were 17 and 23 respectively, is negative. Patient's CT face was reviewed and showed small abscess within the right submandibular space, with adjacent sclerosis of the mandible surrounding tooth 31 compatible with reported recent root canal. Additional mild edema and thickening of the platysma swallow likely reactive no concern for deep space neck infection. We called [facility] and we are unable to reach them. After this we reach out to [facility] oral surgeon. After a significant mount time, page was returned. I discussed the case with Dr. Mancilla who reviewed the CT scan and states that the patient does not need admitted to the hospital. He states that she can receive a dose of IV Decadron 10 mg and another dose of IV clindamycin and be discharged home on oral clindamycin. He states that he will see her in the office on Friday and pull her tooth. I discussed the plan with the patient and she is agreeable this plan she like to go home at this point time. Patient has no trismus and is tolerating secretions no drooling noted. Patient will be given prescriptions for clindamycin and was advised to discontinue the amoxicillin. She was given prescriptions for Percocet and Zofran and advised to use this for severe pain and was advised to rotate Tylenol and I Profen for mild to moderate pain. She is encouraged return with worsening symptoms or concerns. She is agreeable this plan as well as significant other at bedside all question concerns answered she was discharged home in stable condition. Lab Data Labs: Laboratory Results - last 24 hr 10/02/24 11:00 WBC 11.0 RBC 4.88 Hgb 14.4 Hct 42.8 MCV 87.7 MCH 29.5 MCHC 33.6 RDW Std Deviation 40.0 RDW Coeff of Chemo 12.5 Plt Count 251 MPV 9.5 Immature Gran % (Auto) 0.500 Neut % (Auto) 81.4 H Lymph % (Auto) 9.4 L [place] % (Auto) 8.1 Eos % (Auto) 0.2 Baso % (Auto) 0.4 Absolute Neuts (auto) 9.0 H Absolute Lymphs (auto) 1.03 Nucleated RBC % 0 Sodium 138 Potassium 3.8 Chloride 101 Carbon Dioxide 21.0 Anion Gap 16 H BUN 10 Creatinine 0.74 Estim Creat Clear Calc 99.48 Est GFR (MDRD) Non-Af 114 BUN/Creatinine Ratio 13.7 Glucose 106 H Calcium 9.7 Total Bilirubin 0.91 AST 17 ALT 23 Alkaline Phosphatase 61 Total Protein 7.8 Albumin 4.4 Globulin 3.4 Albumin/Globulin Ratio 1.3 Serum , Qual NEGATIVE Radiography Diagnostic Testing: Clinical Impression(s) from Imaging Studies Facial/Sinus 10/02/24 10:54 IMPRESSION: Small abscess within the right submandibular space, with adjacent sclerosis of the mandible surrounding tooth # 31, compatible with reported recent root canal. Additional mild edema and thickening of the platysma muscle, likely reactive. Dr. Barger discussed these findings with Dr. Interiano via telephone at 12:31 pm on 10/02/24. One or more dose reduction techniques were used (e.g., Automated exposure control, adjustment of the mA and/or kV according to patient size, use of iterative reconstruction technique). Reading Location: [facility] Discharge Plan Triage Chief Complaint: Dental ED Provider: Casimiro Interiano Dx/Rx/DC Orders Clinical Impression: Tooth abscess, Pain, dental Prescriptions: No Action oxycodone 5 mg Tablet 5 - 10 mg PO Q4H PRN PRN (Reason: Pain Score 4-10) 5 Days Qty: 20 0RF Primary Care Provider: CYNTHIA TUCKER Referrals: CYNTHIA TUCKER [Other] Activity Restrictions/Additional Instructions: Rotate Tylenol and ibuprofen [id number] when you do this you can take something every 3 hours max dose of Tylenol is 4000 mg max dose of ibuprofen is 3200 mg. Use the Percocet and Zofran for breakthrough severe pain. Stop taking your amoxicillin and take clindamycin as prescribed. You can start taking the clindamycin right before bed tonight as you received 2 doses here in the emergency department. Follow-up with Dr. Mancilla on Friday in his office at 9 AM as he will see you then for tooth extraction in the office. He is in [facility]. Return with worsening symptoms or concerns. Print Language: Salvadorean Disposition Disposition: Home, Self Care
[2024-10-02 11:13] LABS: Absolute Lymphocyte Count 1.03 X10^3/uL (0.83-4.51); Basophil# 0.04 X10^3/uL; Basophil% 0.4 % (0-1); Eosinophil# 0.02 X10^3/uL; Eosinophils% 0.2 % (0-5); Hematocrit 42.8 % (37-47); Hemoglobin 14.4 g/dL (12.0-15.0); Lymphocyte # 1.03 X10^3/ul (0.83-4.51); Lymphocyte % 9.4 % (19-41); Mean Corp Hgb Conc 33.6 g/dL (32-36); Mean Corpuscular Hgb 29.5 pg (27.0-32.0); Mean Corpuscular Volume 87.7 fL (81-99); Mean Platelet Vol. 9.5 fl (6.2-12.0); Monocyte# 0.89 X10^3/uL; Monocyte% 8.1 % (0-10); NRBC Flagged by Analyzer 0 % (0-5); Neutrophil # 8.95 X10^3/uL (2.7-7.7); Neutrophil % 81.4 % (47-70); Platelet Count 251 K/mm3 (150-450); RBC Distribution Width CV 12.5 % (11.6-14.6); Red Blood Count 4.88 M/mm3 (4.2-5.4)
[2024-10-02] MEDS: Ondansetron 4 MG/2 ML Vial IV ×2 (11:15→17:28)
[2024-10-02] MEDS: Morphine 4 MG/ML Syringe IV ×3 (11:15→17:28)
[2024-10-02] MEDS: Clindamycin 600 MG/50 ML BAG 100 MG IV ×2 (11:26→17:09)
[2024-10-02 11:43] VITALS: BP 124/75; PULSE 89; RESP 16; TEMP 37.2; O2SAT 99
[2024-10-02 12:08] LABS: ALB/GLOB Ratio 1.3 RATIO (0.9-2.4); AST(SGOT) 17 U/L (<=31); Alanine Aminotransfer ALT/SGPT 23 U/L (<=34); Albumin, Serum 4.4 g/dL (3.5-5.0); Alkaline Phosphatase 61 U/L (35-104); Anion Gap 16 (5-15); BUN 10 mg/dL (4-19); BUN/Creat Ratio 13.7 RATIO (10-20); Calcium,Total 9.7 mg/dL (7.6-11.0); Chloride 101 mmol/L (98-108); Creatinine, Serum 0.74 mg/dL (0.70-1.20); EST Glomerular Filtration Rate 114 (>60); Estimated Creatinine Clearance 99.48 ml/min (50-250); Globulin 3.4 g/dL (2.2-4.2); Glucose 106 mg/dL (70-99); Potassium 3.8 mmol/L (3.3-5.1); Protein, Total 7.8 g/dL (5.9-8.4); Sodium Level 138 mmol/L (133-145); Total Bilirubin 0.91 mg/dL (0.00-1.30)
[2024-10-02 12:14] LABS: Internal QC Validated? YES +Cl - CLEAR BKGD; Pregnancy, Serum, hCG Quali. NEGATIVE Negative
[2024-10-02 14:00] VITALS: BP 124/78; PULSE 66; RESP 14; O2SAT 98
[2024-10-02] MEDS: Ketorolac 30 MG/ML Syringe IV (15:51)
[2024-10-02 16:00] VITALS: BP 129/76; PULSE 64; RESP 18; O2SAT 98
[2024-10-02] MEDS: dexAMETHasone 10 MG/ML Vial IV (17:10)
[2024-10-02 17:31] VITALS: PULSE 87; RESP 16; TEMP 37.1; O2SAT 98
== END 2024-10-02 17:42 | disposition home or self-care (01) ==
PROVIDERS: Emergency Provider Emergency Medicine; Visit Provider Emergency Medicine
DX: K08.89 Other specified disorders of teeth and supporting structures (principal); K04.7 Periapical abscess without sinus
CPT/HCPCS: 70487; 80053; 84703; 85025; 96365; 96366; 96375; 96376; 99283; Q9967; A4216; J2405

== ENCOUNTER → 2025-01-14 | Outpatient (CLI) | payer OTHER, SELFPAY ==
--- NOTE | 2025-01-14 18:38 | MRI_ITS ---
PROCEDURE: LOWER EXT JOINT ONLY (ROUTINE) 01/15/2025 REASON FOR EXAM: OSTEONECROSIS TECHNIQUE: LOWER EXT JOINT ONLY (ROUTINE) Multiplanar and multisequence images were obtained without IV contrast administration. COMPARISON: COMPARISON : none FINDINGS: No obvious marrow edema, bone infarcts or osteochondral injuries. No marrow infiltrative lesions Fluid signal encasing the flexor hallucis longus tendon. Minimal fluid signal seen encasing the intact tibialis posterior tendon. The flexor digitorum longus tendon appears intact. The peroneus longus and brevis tendons appear intact. The extensor tendons appear intact. The Achilles tendon is normal in its course, width, and signal characteristics and the pre-Achilles fat is clear. Minimal fluid seen along the retrocalcaneal bursa. The lateral compartment ligaments including the talofibular and tibio-fibular ligaments appear normal. The medial compartment ligaments including plantar calcaneofibular ligament also appear normal. The interosseous ligament between the talus and calcaneus is intact. Mild tibiotalar, tibio-fibular, sub-talar and intertarsal joints effusion. Normal appearance of the planter fascia. The neurovascular tissue appears normal. MRI/Lower Ext Joint Only (Routine) IMPRESSION: No obvious marrow edema, bone infarcts or osteochondral injuries. Flexor hallucis longus tendon and to much less extent tibialis posterior tenosy novitis. Mild tibiotalar, tibio-fibular, sub-talar and intertarsal joints effusion. Reading [facility] [address]
== END | disposition home or self-care (01) ==
LOC: MRI 18:26
PROVIDERS: Referring Provider Podiatrist; Visit Provider Podiatrist
DX: M87.874 Other osteonecrosis, right foot (principal)
CPT/HCPCS: 73721